=== PATIENT | female | born 1955 | race Caucasian/White ===

== ENCOUNTER 2016-07-11 17:58 | Emergency (ER) | payer OTHER ==
[~2016-07-11] VITALS: Ht 160 cm; Wt 73.8 kg
[~2016-07-11 17:58] MED LIST: BENTYL10 MG PO; BENTYL20 MG PO; COUMADIN,JANTO2.5 MG; COUMADIN1 MG PO; COUMADIN2.5 MG PO; COUMADIN3 M1 PO; COUMADIN5 MG PO; COUMADIN7.5 MG PO; Cipro PO; Coumadin Protocol PO; Coumadin,Jantoven PO; DIAZEPAM5 MG PO; DIVALPROEX SOD500 M1 PO; DULCOLAX5 MG PO; FEOSOL325 MG PO; Flagyl PO; KEFLEX500 MG PO; KEPPRA500 MG PO; LEVAQUIN750 MG PO; LOPERAMIDE2 M1 PO; LOVENOX30 MG/0.3 SC; LOVENOX80 MG/0.8 SC; Lasix PO; Levothroid,Synthroid PO; ONDANSETRON ODT4 MG PO; OPANA ER20 MG PO; OXYCODONE HCL10 MG PO; OXYCODONE-APAP1 EAC6 PO; OXYCONTIN20 MG PO; OXYMORPHONE HCL15 MG PO; OxyCODONE PO; OxyCONTIN PO; PEPCID40 MG PO; PERCOCET 10/1 TABLET PO; PERCOCET 5/31 TABLET PO; PROTONIX IV40 MG IV; PROTONIX40 MG PO; PYRIDIUM100 MG PO; Protonix PO; SIMVASTATIN20 MG PO; SIMVASTATIN40 MG PO; SYNTHROID150 MCG PO; TESSALON PERLE100 MG PO; Tylenol Regular Stre PO; ULTRAM50 MG PO; VICODIN 5-3001 EACH PO; WARFARIN SODIU2.5 MG PO; WARFARIN SODIUM1 MG PO; WARFARIN SODIUM3 MG PO; ZOFRAN ODT4 MG PO; ZOFRAN4 MG PO; ZOLOFT100 M1 PO; ZOLOFT100 MG PO; Zocor PO; Zoloft PO
[2016-07-11 19:07] LABS: HEMATOCRIT 40.2 % (36.0-46.0); MCH 31.5 PG (29.0-34.0); MCHC 33.1 G/DL (30.0-36.0); MCV 95.3 FL (83-99); RBC DIS.WIDTH-CV 13.9 % (11.8-14.6); RBC DIS.WIDTH-SD 46.1 % (39-53); RED BLOOD COUNT 4.22 M/uL (3.80-5.20); WHITE BLOOD COUNT 6.8 K/uL (4.1-10.2)
[2016-07-11 19:10] LABS: MEAN PLAT.VOLUME 10.8 uM^3 (9.5-12.4)
[2016-07-11 19:11] LABS: PLATELET COUNT 214 K/uL (156-360)
[2016-07-11 19:26] LABS: CHLORIDE 105 mEq/L (99-109); SODIUM 140 mEq/L (136-147)
[2016-07-11 19:28] LABS: GLUCOSE 93 mg/dL (70-99)
[2016-07-11 19:29] LABS: ANION GAP 8 MEQ/L (2-14)
[2016-07-11 19:30] LABS: TOTAL BILIRUBIN 0.3 mg/dL (0.0-1.0)
[2016-07-11 19:32] LABS: ALKALINE PHOSPHATASE 61 IU/L (3-129); GFR ESTIMATE (CALCULATED) > 59 mL/min/
[2016-07-11 19:33] LABS: UREA NITROGEN (BUN) 9 mg/dL (9-23)
[2016-07-11 20:12] LABS: LIPASE 12 U/L (1.0-51.0)
[2016-07-11 21:15] LABS: ADD MIUA? YES; BILIRUBIN NEGATIVE; BLOOD TRACE; COLOR YELLOW ((YELLOW)); GLUCOSE (STRIP) NEGATIVE; KETONES NEGATIVE; LEUKOCYTES NEGATIVE; NITRITE NEGATIVE; PH, URINE 6.5 (5-8); PROTEIN (STRIP) NEGATIVE; SPECIFIC GRAVITY 1.014 (1.000-1.030); UROBILINOGEN 0.2 MG/DL (0.2-1.0)
[2016-07-11 21:18] LABS: BACTERIA 2+; CASTS NONE SEEN /LPF; CRYSTALS NONE SEEN; EPITHELIAL CELLS RARE; MUCUS NONE SEEN; PATHOLOGICAL CAST NONE SEEN; RED BLOOD CELLS 0-5 /HPF (0-5); SMALL ROUND CELL NONE SEEN; UCUL ADDED? NO; WHITE BLOOD CELLS 0-5 /HPF (0-5); YEAST-LIKE CELL NONE SEEN
[2016-07-11] MEDS ORDERED: ZOFRAN ODT4 MG PO (21:42)
[2016-07-11] MEDS ORDERED: PHENERGAN25 MG PR (21:42)
[2016-07-11] MEDS ORDERED: PERCOCET 5/31 TABLET PO (21:42)
[2016-07-11 22:35] VITALS: BP 124/83
== END 2016-07-11 22:39 | disposition home or self-care (01) ==
LOC: EXP 17:58 → EME 17:58 → EXP 22:39
DX: K81.9 Cholecystitis, unspecified (principal); E78.5 Hyperlipidemia, unspecified; E03.9 Hypothyroidism, unspecified; Z79.01 Long term (current) use of anticoagulants; Z87.891 Personal history of nicotine dependence; Z88.6 Allergy status to analgesic agent; Z88.8 Allergy status to other drugs, medicaments and biological substances
CPT/HCPCS: 76705; 80053; 81003; 83690; 85027; 99281; 99285; J1885; J2270; J2405; J7030; S0028

== ENCOUNTER 2016-09-12 07:13 | Day surgery (SDC) | payer OTHER ==
[~2016-09-12] VITALS: Ht 157.5 cm; Wt 71.8 kg
[~2016-09-12 07:13] MED LIST changes: +OXYMORPHONE HCL20 MG PO; +PHENERGAN25 MG PR; +PROBIOTIC1 EAC1 PO; +STOOL SOFTENER100 MG PO; +ZOCOR40 MG PO; +ZOFRAN8 MG PO
[2016-09-12 07:48] VITALS: BP 140/80
[2016-09-12 09:06] LABS: PROTHROMBIN TIME 10.3 (9.2-11.2)
[2016-09-12 17:21] VITALS: BP 118/70
[2016-09-12 18:05] VITALS: BP 115/68
[2016-09-12 19:58] VITALS: BP 133/69
[2016-09-12 20:38] LABS: EOSINOPHIL (%) 0 % (0-5); HEMATOCRIT 38.3 % (36.0-46.0); IMMATURE GRANULOCYTE (%) 0.1 % (0.0-0.7); LYMPHOCYTE COUNT 1.1 K/uL (1.0-2.8); MCH 32.2 PG (29.0-34.0); MCHC 33.7 G/DL (30.0-36.0); MCV 95.5 FL (83-99); MEAN PLAT.VOLUME 11.9 uM^3 (9.5-12.4); MONOCYTE (%) 4.3 % (3-12); MONOCYTE COUNT 0.4 K/uL (0-0.8); NEUTROPHIL (%) 84.2 % (45-76); NEUTROPHIL COUNT 7.9 K/uL (1.8-6.4); PLATELET COUNT 202 K/uL (156-360); RBC DIS.WIDTH-CV 13.7 % (11.8-14.6); RED BLOOD COUNT 4.01 M/uL (3.80-5.20)
[2016-09-12 20:41] LABS: WHITE BLOOD COUNT 9.4 K/uL (4.1-10.2)
[2016-09-12 20:42] LABS: PROTHROMBIN TIME 10.4 (9.2-11.2); PTT 25.2 (25-32)
[2016-09-12 20:51] LABS: ALKALINE PHOSPHATASE 47 IU/L (3-129); ANION GAP 9 MEQ/L (2-14); CHLORIDE 104 MEQ/L (99-109); GFR ESTIMATE (CALCULATED) > 59 mL/min/; GLUCOSE 186 mg/dL (70-99); MAGNESIUM 1.9 mg/dl (1.3-2.7); POTASSIUM 4.3 MEQ/L (3.7-5.4); SAMPLE HEMOLYSIS CHECK 0; SAMPLE ICTERIC CHECK 0; SAMPLE LIPEMIA CHECK 0; SODIUM 138 MEQ/L (136-147); UREA NITROGEN (BUN) 9 mg/dL (9-23)
[2016-09-12 20:52] LABS: TOTAL BILIRUBIN 0.3 MG/DL (0.0-1.0)
[2016-09-12 21:51] VITALS: BP 119/67
[2016-09-13] VITALS (7 sets, daily range): BP systolic 119–140; BP diastolic 56–71
[2016-09-13 07:08] LABS: HEMATOCRIT 35.9 % (36.0-46.0); MCH 31.9 PG (29.0-34.0); MCHC 33.1 G/DL (30.0-36.0); MCV 96.2 FL (83-99); MEAN PLAT.VOLUME 11.6 uM^3 (9.5-12.4); PLATELET COUNT 193 K/uL (156-360); RBC DIS.WIDTH-CV 13.8 % (11.8-14.6); RBC DIS.WIDTH-SD 48.4 % (39-53); RED BLOOD COUNT 3.73 M/uL (3.80-5.20); WHITE BLOOD COUNT 8.8 K/uL (4.1-10.2)
[2016-09-13 07:23] LABS: INTER. NORMALIZED RATIO 1.1; PROTHROMBIN TIME 11.2 (9.2-11.2); PTT 28.6 (25-32)
[2016-09-13 07:26] LABS: ALKALINE PHOSPHATASE 44 IU/L (3-129); ANION GAP 7 MEQ/L (2-14); CHLORIDE 105 MEQ/L (99-109); GFR ESTIMATE (CALCULATED) > 59 mL/min/; SAMPLE HEMOLYSIS CHECK 0; SAMPLE ICTERIC CHECK 0; SAMPLE LIPEMIA CHECK 0; SODIUM 140 MEQ/L (136-147); UREA NITROGEN (BUN) 8 mg/dL (9-23)
[2016-09-13 07:29] LABS: GLUCOSE 89 mg/dL (70-99); TOTAL BILIRUBIN 0.4 MG/DL (0.0-1.0)
[2016-09-13 18:26] LABS: HEMATOCRIT 35.2 % (36.0-46.0); MCH 30.9 PG (29.0-34.0); MCHC 32.1 G/DL (30.0-36.0); MCV 96.2 FL (83-99); MEAN PLAT.VOLUME 11.3 uM^3 (9.5-12.4); PLATELET COUNT 182 K/uL (156-360); RBC DIS.WIDTH-CV 13.8 % (11.8-14.6); RBC DIS.WIDTH-SD 48.7 % (39-53); RED BLOOD COUNT 3.66 M/uL (3.80-5.20); WHITE BLOOD COUNT 7.2 K/uL (4.1-10.2)
[2016-09-14 03:49] VITALS: BP 131/62
[2016-09-14 06:45] LABS: INTER. NORMALIZED RATIO 1.3; PROTHROMBIN TIME 13.2 (9.2-11.2)
[2016-09-14 08:06] VITALS: BP 133/61
[2016-09-14 08:20] LABS: HEMATOCRIT 36.9 % (36.0-46.0); MCH 30.7 PG (29.0-34.0); MCV 96.1 FL (83-99); MEAN PLAT.VOLUME 11.8 uM^3 (9.5-12.4); PLATELET COUNT 182 K/uL (156-360); RBC DIS.WIDTH-CV 13.9 % (11.8-14.6); RBC DIS.WIDTH-SD 48.6 % (39-53); RED BLOOD COUNT 3.84 M/uL (3.80-5.20); WHITE BLOOD COUNT 7.1 K/uL (4.1-10.2)
[2016-09-14 08:48] LABS: ALKALINE PHOSPHATASE 46 IU/L (3-129); ANION GAP 8 MEQ/L (2-14); CHLORIDE 105 MEQ/L (99-109); GFR ESTIMATE (CALCULATED) > 59 mL/min/; GLUCOSE 92 mg/dL (70-99); MAGNESIUM 1.8 mg/dl (1.3-2.7); POTASSIUM 4.1 MEQ/L (3.7-5.4); SAMPLE HEMOLYSIS CHECK 0; SAMPLE ICTERIC CHECK 0; SAMPLE LIPEMIA CHECK 0; SODIUM 142 MEQ/L (136-147); UREA NITROGEN (BUN) 9 mg/dL (9-23)
[2016-09-14 08:50] LABS: TOTAL BILIRUBIN 0.3 MG/DL (0.0-1.0)
[2016-09-14] MEDS ORDERED: OXYCODONE HCL10 MG PO ×2 (13:30→15:36)
[2016-09-14] MEDS ORDERED: DULCOLAX10 MG PR (13:47)
[2016-09-14 18:00] VITALS: BP 125/65
== END 2016-09-14 18:10 | disposition home or self-care (01) ==
LOC: SDC 07:13 → 2EAST 11:30 → 2SOUTH 11:30 → SDC 16:13 → 2EAST 21:50
PROVIDERS: Surgery
PROC: 0FT44ZZ Resection of Gallbladder, Percutaneous Endoscopic Approach (ICD-10-PCS; principal; 2016-09-12)
DX: K80.10 Calculus of gallbladder with chronic cholecystitis without obstruction (principal); D68.51 Activated protein C resistance; R00.1 Bradycardia, unspecified; I95.9 Hypotension, unspecified; F17.200 Nicotine dependence, unspecified, uncomplicated; I10 Essential (primary) hypertension; Z79.01 Long term (current) use of anticoagulants; Z88.8 Allergy status to other drugs, medicaments and biological substances; Z80.9 Family history of malignant neoplasm, unspecified
CPT/HCPCS: 80053; 83735; 84100; 85025; 85027; 85610; 85730; 88304; G0378; J0131; J1100; J1170; J1650; J1885; J2250; J2405; J2710; J2765; J3010; J7120

== ENCOUNTER 2016-09-16 15:05 | Emergency (ER) | payer OTHER ==
[~2016-09-16] VITALS: Ht 157.5 cm; Wt 72.9 kg
[~2016-09-16 15:05] MED LIST changes: +DULCOLAX10 MG PR
[2016-09-16] MEDS ORDERED: WARFARIN SODIUM5 MG PO (15:29)
[2016-09-16] MEDS ORDERED: OXYCODONE HCL10 MG PO (15:31)
[2016-09-16 16:26] LABS: BASOPHIL COUNT 0.1 K/uL (0-0.1); EOSINOPHIL (%) 3.3 % (0-5); EOSINOPHIL COUNT 0.3 K/uL (0-0.3); HEMATOCRIT 39.5 % (36.0-46.0); IMMATURE GRANULOCYTE (%) 0.2 % (0.0-0.7); INSTRUMENT ABS NEUTROPHIL CT 4.9 K/uL; LYMPHOCYTE COUNT 2.5 K/uL (1.0-2.8); MCH 31.7 PG (29.0-34.0); MCHC 33.7 G/DL (30.0-36.0); MEAN PLAT.VOLUME 11.3 uM^3 (9.5-12.4); MONOCYTE (%) 7.9 % (3-12); MONOCYTE COUNT 0.7 K/uL (0-0.8); NEUTROPHIL (%) 57.7 % (45-76); NEUTROPHIL COUNT 4.9 K/uL (1.8-6.4); PLATELET COUNT 215 K/uL (156-360); RBC DIS.WIDTH-CV 13.1 % (11.8-14.6); RBC DIS.WIDTH-SD 44.7 % (39-53); WHITE BLOOD COUNT 8.5 K/uL (4.1-10.2)
[2016-09-16 16:50] LABS: INTER. NORMALIZED RATIO 1.8; PROTHROMBIN TIME 18.5 (9.2-11.2)
[2016-09-16 16:51] LABS: CHLORIDE 103 mEq/L (99-109); POTASSIUM 4.1 mEq/L (3.7-5.4); SODIUM 141 mEq/L (136-147)
[2016-09-16 16:53] LABS: GLUCOSE 94 mg/dL (70-99)
[2016-09-16 16:54] LABS: ANION GAP 12 MEQ/L (2-14)
[2016-09-16 16:55] LABS: TOTAL BILIRUBIN 0.2 mg/dL (0.0-1.0)
[2016-09-16 16:56] LABS: ALKALINE PHOSPHATASE 76 IU/L (3-129)
[2016-09-16 16:57] LABS: GFR ESTIMATE (CALCULATED) > 59 mL/min/
[2016-09-16 16:58] LABS: UREA NITROGEN (BUN) 10 mg/dL (9-23)
[2016-09-16 17:00] LABS: LIPASE 40 U/L (1.0-51.0); TROP-I INTERPRETATION NEGATIVE; TROPONIN-I < 0.01 ng/mL (0.0-0.30)
[2016-09-16 17:57] LABS: ADD MIUA? YES; BILIRUBIN NEGATIVE; BLOOD SMALL; COLOR YELLOW ((YELLOW)); GLUCOSE (STRIP) NEGATIVE; KETONES NEGATIVE; LEUKOCYTES LARGE; NITRITE POSITIVE; PROTEIN (STRIP) NEGATIVE; SPECIFIC GRAVITY 1.013 (1.000-1.030); UROBILINOGEN 0.2 MG/DL (0.2-1.0)
[2016-09-16 18:19] LABS: BACTERIA 3+ /HPF; CASTS NONE SEEN /LPF; CRYSTALS NONE SEEN; EPITHELIAL CELLS 1+ /HPF; MUCUS NONE SEEN /LPF; RED BLOOD CELLS 0-5 /HPF (0-5); UCUL ADDED? YES; WHITE BLOOD CELLS 20-30 /HPF (0-5)
[2016-09-16] MEDS ORDERED: PERCOCET 5/31 TABLET PO (18:44)
[2016-09-16] MEDS ORDERED: ZOFRAN ODT4 MG PO (18:44)
[2016-09-16] MEDS ORDERED: CIPRO500 MG PO (18:46)
[2016-09-16] MEDS ORDERED: DIFLUCAN150 MG PO (18:46)
[2016-09-16 19:04] VITALS: BP 131/75
== END 2016-09-16 19:05 | disposition home or self-care (01) ==
LOC: EME 15:05
PROVIDERS: Emergency Medicine
DX: N12 Tubulo-interstitial nephritis, not specified as acute or chronic (principal); R11.2 Nausea with vomiting, unspecified; R42 Dizziness and giddiness; Z98.890 Other specified postprocedural states; Z90.49 Acquired absence of other specified parts of digestive tract; E78.5 Hyperlipidemia, unspecified; E03.9 Hypothyroidism, unspecified; G89.29 Other chronic pain; Z86.711 Personal history of pulmonary embolism; Z86.718 Personal history of other venous thrombosis and embolism; Z79.01 Long term (current) use of anticoagulants; Z79.891 Long term (current) use of opiate analgesic; Z90.710 Acquired absence of both cervix and uterus; Z87.891 Personal history of nicotine dependence
CPT/HCPCS: 74176; 80053; 81003; 83690; 84484; 85025; 85610; 87077; 87086; 87186; 93005; 99281; 99285; J0696; J2270; J2405; J7050

== ENCOUNTER 2016-10-29 15:04 | Emergency (ER) | payer OTHER ==
[~2016-10-29] VITALS: Ht 157.5 cm; Wt 72.6 kg
[~2016-10-29 15:04] MED LIST changes: +CIPRO500 MG PO; +DIFLUCAN150 MG PO; +WARFARIN SODIUM5 MG PO
[2016-10-29 16:15] LABS: HEMATOCRIT 41.4 % (36.0-46.0); MCH 31.5 PG (29.0-34.0); MCHC 33.8 G/DL (30.0-36.0); MCV 93.2 FL (83-99); MEAN PLAT.VOLUME 10.6 uM^3 (9.5-12.4); PLATELET COUNT 249 K/uL (156-360); RBC DIS.WIDTH-CV 12.9 % (11.8-14.6); RED BLOOD COUNT 4.44 M/uL (3.80-5.20); WHITE BLOOD COUNT 7.1 K/uL (4.1-10.2)
[2016-10-29 16:25] LABS: CHLORIDE 107 mEq/L (99-109); POTASSIUM 4.2 mEq/L (3.7-5.4); SODIUM 139 mEq/L (136-147)
[2016-10-29 16:26] LABS: GLUCOSE 95 mg/dL (70-99)
[2016-10-29 16:27] LABS: ANION GAP 9 MEQ/L (2-14)
[2016-10-29 16:30] LABS: GFR ESTIMATE (CALCULATED) > 59 mL/min/
[2016-10-29 16:31] LABS: UREA NITROGEN (BUN) 8 mg/dL (9-23)
[2016-10-29 16:39] LABS: D-DIMER ELISA 0.17 mg/L FEU (< 0.57)
[2016-10-29 16:47] LABS: INTER. NORMALIZED RATIO 3.4
[2016-10-29] MEDS ORDERED: AUGMENTIN875 MG PO (17:20)
[2016-10-29] MEDS ORDERED: VENTOLIN HFA18 GM IH (17:20)
[2016-10-29 17:47] VITALS: BP 144/69
== END 2016-10-29 17:49 | disposition home or self-care (01) ==
LOC: EME 15:04
PROVIDERS: Physician Assistant
DX: J06.9 Acute upper respiratory infection, unspecified (principal); E78.5 Hyperlipidemia, unspecified; I10 Essential (primary) hypertension; E03.9 Hypothyroidism, unspecified; F17.200 Nicotine dependence, unspecified, uncomplicated; Z86.711 Personal history of pulmonary embolism; Z86.718 Personal history of other venous thrombosis and embolism; Z79.01 Long term (current) use of anticoagulants
CPT/HCPCS: 71020; 80048; 85027; 85379; 85610; 93005; 99281; 99285

== ENCOUNTER 2016-12-25 19:50 | Emergency (ER) | payer OTHER ==
[~2016-12-25] VITALS: Ht 157.5 cm; Wt 72.4 kg
[~2016-12-25 19:50] MED LIST changes: +AUGMENTIN875 MG PO; +VENTOLIN HFA18 GM IH
[2016-12-25 20:19] LABS: ADD MIUA? YES; BILIRUBIN NEGATIVE; BLOOD SMALL; COLOR YELLOW ((YELLOW)); GLUCOSE (STRIP) NEGATIVE; KETONES NEGATIVE; LEUKOCYTES NEGATIVE; NITRITE NEGATIVE; PROTEIN (STRIP) 30; SPECIFIC GRAVITY 1.015 (1.000-1.030); UROBILINOGEN 0.2 MG/DL (0.2-1.0)
[2016-12-25 20:30] LABS: HEMATOCRIT 37.8 % (36.0-46.0); MCH 31.8 PG (29.0-34.0); MCHC 33.3 G/DL (30.0-36.0); MCV 95.5 FL (83-99); MEAN PLAT.VOLUME 10.9 uM^3 (9.5-12.4); PLATELET COUNT 214 K/uL (156-360); RBC DIS.WIDTH-SD 45.7 % (39-53); RED BLOOD COUNT 3.96 M/uL (3.80-5.20); WHITE BLOOD COUNT 8.6 K/uL (4.1-10.2)
[2016-12-25 20:30] LABS: BACTERIA NONE SEEN /HPF; EPITHELIAL CELLS RARE /HPF; HYALINE CASTS 0-5 /LPF; MUCUS TRACE /LPF; RED BLOOD CELLS 0-5 /HPF (0-5); UCUL ADDED? NO; UNCLASSIFIED CASTS 0-5 /LPF; WHITE BLOOD CELLS 0-5 /HPF (0-5)
[2016-12-25 20:42] LABS: CHLORIDE 106 mEq/L (99-109); POTASSIUM 3.4 mEq/L (3.7-5.4); SODIUM 141 mEq/L (136-147)
[2016-12-25 20:44] LABS: GLUCOSE 108 mg/dL (70-99)
[2016-12-25 20:45] LABS: ANION GAP 8 MEQ/L (2-14)
[2016-12-25 20:46] LABS: TOTAL BILIRUBIN 0.5 mg/dL (0.0-1.0)
[2016-12-25 20:48] LABS: ALKALINE PHOSPHATASE 53 IU/L (3-129); GFR ESTIMATE (CALCULATED) > 59 mL/min/
[2016-12-25 20:49] LABS: UREA NITROGEN (BUN) 10 mg/dL (9-23)
[2016-12-25 20:51] LABS: LIPASE 9 U/L (1.0-51.0)
[2016-12-25 21:28] LABS: PROTHROMBIN TIME 19.8 (9.2-11.2)
[2016-12-25 21:31] LABS: INTER. NORMALIZED RATIO 1.9
[2016-12-25 22:04] VITALS: BP 142/68
== END 2016-12-25 22:05 | disposition home or self-care (01) ==
LOC: EXP 19:50 → EME 19:50 → EXP 22:05
DX: R10.11 Right upper quadrant pain (principal); R11.0 Nausea; E78.5 Hyperlipidemia, unspecified; I10 Essential (primary) hypertension; E03.9 Hypothyroidism, unspecified; Z86.711 Personal history of pulmonary embolism; Z86.718 Personal history of other venous thrombosis and embolism; D68.2 Hereditary deficiency of other clotting factors; Z90.49 Acquired absence of other specified parts of digestive tract; F17.200 Nicotine dependence, unspecified, uncomplicated; Z79.01 Long term (current) use of anticoagulants
CPT/HCPCS: 74176; 80053; 81003; 83690; 85027; 85610; 99281; 99284; J1885

== ENCOUNTER 2017-07-11 14:13 | Emergency (ER) | payer OTHER ==
[~2017-07-11] VITALS: Ht 160 cm; Wt 72.4 kg
[2017-07-11 15:25] LABS: HEMATOCRIT 41.5 % (36.0-46.0); MCH 32.8 PG (29.0-34.0); MCHC 33.7 G/DL (30.0-36.0); MCV 97.2 FL (83-99); PLATELET COUNT 216 K/uL (156-360); RBC DIS.WIDTH-CV 12.5 % (11.8-14.6); RBC DIS.WIDTH-SD 44.8 % (39-53); RED BLOOD COUNT 4.27 M/uL (3.80-5.20); WHITE BLOOD COUNT 7.4 K/uL (4.1-10.2)
[2017-07-11 15:33] LABS: CHLORIDE 106 mEq/L (99-109); POTASSIUM 4.1 mEq/L (3.7-5.4); SODIUM 142 mEq/L (136-147)
[2017-07-11 15:35] LABS: GLUCOSE 109 mg/dL (70-99); INTER. NORMALIZED RATIO 2.3
[2017-07-11 15:39] LABS: CREATININE 0.7 mg/dL (0.6-1.3); GFR ESTIMATE (CALCULATED) > 59 mL/min/
[2017-07-11 15:40] LABS: UREA NITROGEN (BUN) 8 mg/dL (9-23)
[2017-07-11 20:33] VITALS: BP 131/67
== END 2017-07-11 20:33 | disposition home or self-care (01) ==
LOC: EME 14:13
DX: H11.32 Conjunctival hemorrhage, left eye (principal); R51 Headache; E78.5 Hyperlipidemia, unspecified; E03.9 Hypothyroidism, unspecified; D68.2 Hereditary deficiency of other clotting factors; Z86.711 Personal history of pulmonary embolism; Z86.718 Personal history of other venous thrombosis and embolism; Z79.01 Long term (current) use of anticoagulants; F17.200 Nicotine dependence, unspecified, uncomplicated
CPT/HCPCS: 70450; 70496; 80048; 85027; 85610; 86850; 86900; 86901; 99281; 99284